=== PATIENT | female | born 1995 | race African-American/Black ===

== ENCOUNTER 2016-08-19 22:02 | Emergency (ER) | payer SELFPAY ==
[2016-08-19 22:08] VITALS: BP 144/83; BMI 50.2
--- NOTE | 2016-08-19 22:21 | DR.GENAD ---
HPI - PCP Primary Care Physician: NFD - Complaint/Symptoms Chief Complaint:: PT C/O BOTTOM RT TOOTHACHE SWELLING NOTED TOO JAW - Nurses notes reviewed Nurses Notes Review: Yes - Source History Provided: Patient - Mode of Arrival Mode of Arrival: Ambulatory - Timing Onset of Chief Complaint: 08/18/16 Came on: Gradually - Duration Duration: Constant - Location Location: right lower tooth - Severity Severity: Moderate - Modifying Factors Worsens:: food - Associated Signs and Symptoms Associated Signs and Symptoms: swelling PMH - PMH Past Medical History: No Past Surgical History: No - Family History History of Family Medical Conditions: No - Social History Does any household member use tobacco: No Alcohol Use: None Do you use any recreational Drugs:: No Lives With: Family Lives Where: Home - infectious screening In the last 2 months have you had wt loss of >10#?: NO Have you had fever, night sweats or hemotysis?: No Have you traveled outside the country in the last 6 months?: No Isolation: Standard ROS - Review of Systems Constitutional: No Symptoms Reported Eyes: No Symptoms Reported ENTM: Mouth Pain Respiratoy: No Symptoms Reported Cardiovascular: No Symptoms Reported Gastrointestinal/Abdominal: No Symptoms Reported Genitourinary: No Symptoms Reported Neurological: No Symptoms Reported Musculoskeletal: No Symptoms Reported Integumentary: No Symptoms Reported Hematologic/Lymphatic: No Symptoms Reported Endocrine: No Symptoms Reported Psychiatric: No Symptoms Reported All Other Systems: Reviewed and Negative PE - Vital Signs Vitals: Temperature 98.6 F Pulse Rate 98 Respiratory Rate 18 Blood Pressure 144/83 O2 Sat by Pulse Oximetry 100 - General Limitations: No Limitations General Appearance: Alert, In No Apparent Distress - Head Head Exam: Normal Inspection - Eyes Eye exam: Normal Appearance, EOMI. negative: Scleral Icterus, Conjunctival Injection - ENT ENT Exam: Other (right lower gum swelling inflammed) External Ear Exam: Normal External Inspection Mouth Exam: Normal Inspection, Other (gum red swelling). negative: Drooling, Trismus, Lip Swelling, Tongue Elevation, Tongue Swelling - Neck Neck Exam: Normal Inspection, Full ROM, Trachea Midline - Chest Chest Inspection: Normal Inspection - Respiratory Respiratory Exam: negative: Accessory Muscle Use, Respiratory Distress - Cardiovascular Cardiovascular Exam: Regular Rate - Extremities Extremities Exam: Normal Inspection, Full ROM - Back Back Exam: Normal Inspection - Neurologic Neurological Exam: Alert, Oriented X3, CN II-XII Intact - Psychiatric Psychiatric Exam: Normal Mood - Skin Skin Exam: Intact, Normal Color - Diagnosis Discharge Problem: Toothache - Discharge Plan Condition: Stable Prescriptions: Azithromycin [Zithromax Z-Danis 5-day] 1 dose PO DAILY #6 tab Tramadol HCl [ULTRAM 50 MG *] 50 mg PO Q8H PRN #21 tab PRN Reason: Pain - Follow ups/Referrals Follow ups/Referrals: NFD,None [Primary Care Provider] - 3 days - Instructions Instructions: Dental Pain
[2016-08-19] MEDS ORDERED: ROCEPHIN VIAL 1 GM IM ONE (22:37)
[2016-08-19] MEDS ORDERED: ULTRAM PO ONE (22:40)
[2016-08-19] MEDS ORDERED: XYLOCAINE 1 % (PLAIN) ONE (22:42)
[2016-08-19] MEDS ORDERED: ROCEPHIN VIAL 1 GM ONE (22:43)
[2016-08-19] MEDS ORDERED: ULTRAM ONE (22:43)
== END 2016-08-19 23:03 | disposition home or self-care (01) ==
LOC: ER 22:13
DX: K08.89 Other specified disorders of teeth and supporting structures (principal)
CPT/HCPCS: 96372; 99282; J0696; J2001

== ENCOUNTER 2016-09-24 10:30 | Emergency (ER) | payer SELFPAY ==
[2016-09-24 10:43] VITALS: BP 129/85; BMI 45.0
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
== END 2016-09-24 12:03 | disposition home or self-care (01) ==
LOC: ER 10:50
DX: S22.088A Other fracture of T11-T12 vertebra, initial encounter for closed fracture (principal); M54.5 Low back pain; V89.2XXA Person injured in unspecified motor-vehicle accident, traffic, initial encounter; Y92.69 Other specified industrial and construction area as the place of occurrence of the external cause
CPT/HCPCS: 99281; 99282

== ENCOUNTER 2016-12-27 10:33 | Emergency (ER) | payer SELFPAY ==
[2016-12-27 10:46] VITALS: BP 138/78; BMI 39.1
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
[2016-12-27 11:42] LABS: BASOPHILS # (AUTO) 0.1 X10^3/uL (0.0-0.1); BASOPHILS % (AUTO) 0.8 % (0.2-1.0); EOSINOPHILS # (AUTO) 0.1 x10^3/uL (0.0-0.2); EOSINOPHILS % (AUTO) 1.4 % (0.9-2.9); HEMATOCRIT 36.2 % (36.0-47.0); HEMOGLOBIN 11.8 g/dL (12.0-16.0); LYMPHOCYTES # (AUTO) 2.2 X10^3/uL (1.3-2.9); LYMPHOCYTES % (AUTO) 29.3 % (21.0-51.0); MEAN CORPUSCULAR HEMOGLOBIN 29.5 pg (27.0-34.0); MEAN CORPUSCULAR HGB CONC 32.7 g/dL (33.0-35.0); MEAN CORPUSCULAR VOLUME 90.4 fL (80.0-100.0); MEAN PLATELET VOLUME 9.1 fL (7.4-11.0); MONOCYTES # (AUTO) 0.5 x10^3/uL (0.3-0.8); MONOCYTES % (AUTO) 6.2 % (0.0-13.0); NEUTROPHILS # (AUTO) 4.6 x10^3/uL (2.2-4.8); NEUTROPHILS % (AUTO) 62.3 % (42.0-75.0); PLATELET COUNT 392 X10^3/uL (150.0-450.0); RED BLOOD COUNT 4.01 X10^6/uL (3.5-5.4); RED CELL DISTRIBUTION WIDTH 14.8 % (11.6-16.5); WHITE BLOOD COUNT 7.3 X10^3/uL (3.6-10.0)
[2016-12-27 11:46] LABS: BILIRUBIN,URINE NEGATIVE (NEGATIVE); BLOOD/HEMOGLOBIN,URINE NEGATIVE (NEGATIVE); GLUCOSE, URINE NEGATIVE (NEGATIVE); KETONES,URINE NEGATIVE (NEGATIVE); LEUKOCYTE ESTERASE ,URINE NEGATIVE (NEGATIVE); NITRITES,URINE NEGATIVE (NEGATIVE); PH,URINE 6.5 (5.0 - 8.0); PROTEIN,URINE NEGATIVE (NEGATIVE); UROBILINOGEN,URINE NORMAL (NORMAL)
--- NOTE | 2016-12-27 11:49 | CT ---
HISTORY: Neck & C-spine pain Study: CT cervical spine without contrast Comparison: None Technique: Multiple axial images of the cervical spine were obtained from the skull base to the thora cic inlet without administration of IV contrast. Sagittal and coronal reformats were performed and r eviewed. Findings: Alignment of the cervical spine is maintained. No evidence for acute fracture, compression deformity , or subluxation can be seen. The central canal remains free of compromise from bony fragments or si gnificant soft tissue encroachment. The posterior elements appear unremarkable. The prevertebral so ft tissues are normal in their appearance. In addition, the surrounding paraspinous soft tissues are unremarkable IMPRESSION: 1. NEGATIVE C-SPINE CT EXAM. Reported By:
[2016-12-27 11:51] LABS: ALANINE AMINOTRANSFERASE 17 Units/L (12-78); ALBUMIN 3.3 g/dL (3.4-5.0); ALKALINE PHOSPHATASE 65 Units/L (46-116); ASPARTATE AMINO TRANSFERASE 13 Units/L (15-37); BLOOD UREA NITROGEN 6 mg/dL (7-18); CALCIUM 9.2 mg/dL (8.5-10.1); CARBON DIOXIDE 27.4 mmol/L (21-32); CHLORIDE 105 mmol/L (98-107); COR CA(FOR HYPOALB) 9.8 mg/dL (8.5-10.1); COR NA(FOR HYPERGLY) 139 mmol/L (136-145); CREATININE 0.72 mg/dL (0.55-1.02); SODIUM 139 mmol/L (136-145); TOTAL PROTEIN 7.6 g/dL (6.4-8.2); eGFR BLACK RACES > 60 (>60); eGFR NON BLACK RACES > 60 (>60)
--- NOTE | 2016-12-27 11:51 | CT ---
HISTORY: Low back pain. Injury. Study: CT lumbar spine without contrast Comparison: None. Technique: Multiple axial images of the lumbar spine were obtained from the thoracolumbar junction t o the sacrum without the administration of IV contrast. Sagittal and coronal reformats were performe d and reviewed. Findings: Alignment of the lumbar spine is maintained. No evidence for acute fracture or subluxation can be id entified. No central canal compromise by bony osteophyte formation or soft tissue components can be identified. No significant facet joint arthropathy can be appreciated. The surrounding paraspinous soft tissues are normal in their noncontrasted appearance. IMPRESSION: Negative CT exam of the lumbar spine for acute lumbar fracture or subluxation. However, there is a compression fracture involving the T11 vertebral body which apparently extends to the posterior elements at this level. This can be correlated with CT imaging of the thoracic spine, as this may be a subacute injury/fracture. Two rather large cystic lesions seen in the pelvis; probably ovarian in etiology. This can followed u p with pelvic sonography for improved assessment/assurance. Reported By:
[2016-12-27 11:52] LABS: SERUM PREGNANCY TEST, QUAL NEGATIVE <10 mIU/mL
[2016-12-27 11:53] LABS: APPEARANCE,URINE CLEAR (CLEAR); COLOR,URINE YELLOW (YELLOW)
[2016-12-27 12:09] LABS: AMORPHOUS SEDIMENT,UR TRACE /HPF (NEGATIVE); BACTERIA,URINE TRACE /HPF (NEGATIVE); RBC,URINE RARE /HPF (NEGATIVE); SQUAMOUS EPITHELIAL CELL,UR MODERATE /HPF (NEGATIVE)
[2016-12-27] MEDS ORDERED: TORADOL 60 MG VIAL IM ONE (12:34)
[2016-12-27] MEDS ORDERED: TORADOL 60 MG VIAL ONE (12:43)
== END 2016-12-27 13:04 | disposition home or self-care (01) ==
LOC: ER 10:48
DX: S22.080A Wedge compression fracture of T11-T12 vertebra, initial encounter for closed fracture (principal); M54.5 Low back pain; V89.2XXA Person injured in unspecified motor-vehicle accident, traffic, initial encounter
CPT/HCPCS: 36415; 72125; 72131; 80053; 81001; 84703; 85025; 96372; 99283; J1885

== ENCOUNTER 2017-02-07 14:20 | Emergency (ER) | payer SELFPAY ==
[2017-02-07 14:30] VITALS: BP 137/88; BMI 37.3
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
== END 2017-02-07 15:36 | disposition home or self-care (01) ==
LOC: ER 14:28
DX: R07.89 Other chest pain (principal)
CPT/HCPCS: 99281

== ENCOUNTER 2017-03-17 16:36 | Emergency (ER) | payer SELFPAY ==
[2017-03-17 16:39] VITALS: BP 131/87; BMI 31.8
[2017-03-17 17:21] LABS: BILIRUBIN,URINE NEGATIVE (NEGATIVE); BLOOD/HEMOGLOBIN,URINE 1+ (NEGATIVE); GLUCOSE, URINE NEGATIVE (NEGATIVE); KETONES,URINE NEGATIVE (NEGATIVE); LEUKOCYTE ESTERASE ,URINE 1+ (NEGATIVE); NITRITES,URINE NEGATIVE (NEGATIVE); PROTEIN,URINE 1+ (NEGATIVE); UROBILINOGEN,URINE 1+ (NORMAL)
[2017-03-17 17:25] LABS: SERUM PREGNANCY TEST, QUAL NEGATIVE <10 mIU/mL
[2017-03-17 17:25] LABS: APPEARANCE,URINE HAZY (CLEAR); BACTERIA,URINE TRACE /HPF (NEGATIVE); COLOR,URINE YELLOW (YELLOW); RBC,URINE 0-2 /HPF (NEGATIVE); SQUAMOUS EPITHELIAL CELL,UR FEW /HPF (NEGATIVE)
[2017-03-17 18:58] LABS: CHLAMYDIA TRACH URINE NOT DETECTED (NOT DETECT)
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
== END 2017-03-17 19:29 | disposition home or self-care (01) ==
LOC: ER 16:44
DX: Z20.2 Contact with and (suspected) exposure to infections with a predominantly sexual mode of transmission (principal); N34.2 Other urethritis
CPT/HCPCS: 36415; 81001; 84703; 87491; 87591; 99282

== ENCOUNTER 2017-03-30 16:09 | Emergency (ER) | payer SELFPAY ==
[2017-03-30 16:19] VITALS: BP 133/95; BMI 39.5
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
[2017-03-30] MEDS ORDERED: AMOXIL CAP 500 MG PO ONE ×3 (17:45→17:50)
[2017-03-30] MEDS ORDERED: MOTRIN TAB 800 MG PO ONE ×2 (17:46→17:50)
== END 2017-03-30 17:57 | disposition home or self-care (01) ==
LOC: ER 16:16
DX: H66.92 Otitis media, unspecified, left ear (principal)
CPT/HCPCS: 99282

== ENCOUNTER 2017-08-15 09:25 | Emergency (ER) | payer SELFPAY ==
[2017-08-15 09:35] VITALS: BP 135/82; BMI 40.0
--- NOTE | 2017-08-15 10:04 | DR.GENAD ---
HPI - PCP Primary Care Physician: THOM - HPI Comment HPI Comment: HISTORY BELOW. - Complaint/Symptoms Chief Complaint Doctors Comments: NO PERIOD TIMES 2M. HAVING LOWER ABDOMINAL PAIN AND URINARY FREQUENCY. NO DYSURIA OR FEVER. NO VAGINAL BLEEDING. Chief Complaint:: Pt states that she has had interimittent lower abomen for about 2 weeks. Denies dysuria or discharge. Pt states she hasn't had a period in about 2 months and usually when she's late she has a uti. Pt also states that she has had intermittent nausea and vomiting - Nurses notes reviewed Nurses Notes Review: Yes - Source History Provided: Patient - Mode of Arrival Mode of Arrival: Ambulatory - Timing Onset of Chief Complaint: 08/15/17 Came on: Suddenly - Duration Duration: Constant Duration: Weeks - Severity Severity: Moderate PMH - PMH Past Medical History: No Past Surgical History: No Surgical History: No History - Family History History of Family Medical Conditions: Yes Family Medical History: Diabetes Mellitus, CA, Coronary Artery Disease, Hypertension - Social History Does patient currently use any type of tobacco product: No Have you used tobacco products in the last 12 months: No Type of Tobacco Use: None Does any household member use tobacco: No Alcohol Use: None Do you use any recreational Drugs:: No Lives With: Friend Lives Where: Home - infectious screening In the last 2 months have you had wt loss of >10#?: NO Have you had fever, night sweats or hemotysis?: No Have you traveled outside the country in the last 6 months?: No Isolation: Standard ROS - Review of Systems Constitutional: Weakness, Fatigue Eyes: No Symptoms Reported ENTM: No Symptoms Reported Respiratoy: No Symptoms Reported Cardiovascular: No Symptoms Reported Gastrointestinal/Abdominal: Abdominal Pain (LOWER ABDOMINAL PAIN) Genitourinary: Frequency Neurological: No Symptoms Reported Musculoskeletal: No Symptoms Reported Integumentary: No Symptoms Reported Hematologic/Lymphatic: No Symptoms Reported Endocrine: No Symptoms Reported All Other Systems: Reviewed and Negative PE - Vital Signs Vitals: Temperature 97.5 F Pulse Rate 115 Respiratory Rate 20 Blood Pressure 135/82 O2 Sat by Pulse Oximetry 99 - General Limitations: No Limitations General Appearance: Alert - Head Head Exam: Normal Inspection - Eyes Eye exam: Normal Appearance - ENT ENT Exam: Normal External Ear Exam External Ear Exam: Normal External Inspection TM/Canal Exam: Bilateral Normal Nose Exam: Normal Nose Exam Mouth Exam: Normal Inspection Throat Exam: Normal Inspection - Neck Neck Exam: Trachea Midline - Chest Chest Inspection: Symmetric Chest Wall Rise - Respiratory Respiratory Exam: Normal Lung Sounds Bilat Respiratory Exam: Bilateral Clear to Auscultation - Cardiovascular Cardiovascular Exam: Regular Rate, Normal Rhythm, Normal Heart Sounds - Abdominal Exam Abdominal Exam: Normal Bowel Sounds, Soft. negative: Tenderness - Extremities Extremities Exam: Normal Inspection - Back Back Exam: Normal Inspection - Neurologic Neurological Exam: Alert, Oriented X3 - Psychiatric Psychiatric Exam: Normal Affect, Normal Mood - Skin Skin Exam: Normal Color MDM - Differential Diagnosis Differential Diagnosis: AMENORRHEA, ABDOMINAL PAIN, UTI. Course - Treatment Treatment: SEE ORDERS. - Education/Counseling Education/Counseling: Patient, Education Educated On: Diagnosis, Needs for Follow Up ROR - Labs Reviewed Laboratory Results Reviewed?: Yes Laboratory: HCG, Qual Positive >10 mIU/mL 08/15/17 10:11 HCG, Quant 25651 mIU/mL (0-6) H 08/15/17 10:11 Specimen Type Random urine 08/15/17 09:47 Urine Color Yellow (YELLOW) 08/15/17 09:47 Urine Appearance Clear (CLEAR) 08/15/17 09:47 Urine pH 5.0 (5.0 - 8.0) 08/15/17 09:47 Ur Specific [place] 1.025 (1.000-1.030) 08/15/17 09:47 Urine Protein 2+ (NEGATIVE) 08/15/17 09:47 Urine Glucose (UA) 3+ (NEGATIVE) 08/15/17 09:47 Urine Ketones 1+ (NEGATIVE) 08/15/17 09:47 Urine Occult Blood 1+ (NEGATIVE) 08/15/17 09:47 Urine Nitrite Negative (NEGATIVE) 08/15/17 09:47 Urine Bilirubin Negative (NEGATIVE) 08/15/17 09:47 Urine Urobilinogen Normal (NORMAL) 08/15/17 09:47 Ur Leukocyte Esterase 1+ (NEGATIVE) 08/15/17 09:47 Urine RBC 0-2 /HPF (NONE SEEN) 08/15/17 09:47 Urine WBC 3-5 /HPF (NONE SEEN) 08/15/17 09:47 Ur Squamous Epith Cells Many /HPF (NEGATIVE) 08/15/17 09:47 Urine Bacteria Trace /HPF (NEGATIVE) 08/15/17 09:47 Urine Mucus Moderate /HPF (NEGATIVE) 08/15/17 09:47 Ur Culture Indicated? No/not indicated 08/15/17 09:47 - XRAY XRAY Interpreted by: Radiologist XRAY Findings: REPORT DISCUSS WITH PATIENT. - Diagnosis Discharge Problem: Abdominal pain affecting , Abdominal pain during intrauterine - Discharge Plan Disposition: 01 HOME, SELF-CARE Condition: Stable - Follow ups/Referrals Follow ups/Referrals: [facility],None [Primary Care Provider] - 3 days ABIMAEL DIETRICH [STAFF PHYSICIAN] - 3 days - Instructions Instructions: Abdominal Pain During , [id number], Pelvic Rest Additional Instructions: RETURN TO ED IF WORSE.
[2017-08-15 10:10] LABS: BILIRUBIN,URINE NEGATIVE (NEGATIVE); BLOOD/HEMOGLOBIN,URINE 1+ (NEGATIVE); GLUCOSE, URINE 3+ (NEGATIVE); KETONES,URINE 1+ (NEGATIVE); LEUKOCYTE ESTERASE ,URINE 1+ (NEGATIVE); NITRITES,URINE NEGATIVE (NEGATIVE); PROTEIN,URINE 2+ (NEGATIVE); UROBILINOGEN,URINE NORMAL (NORMAL)
[2017-08-15 10:17] LABS: APPEARANCE,URINE CLEAR (CLEAR); COLOR,URINE YELLOW (YELLOW)
[2017-08-15 10:18] LABS: BACTERIA,URINE TRACE /HPF (NEGATIVE); MUCUS,URINE MODERATE /HPF (NEGATIVE); RBC,URINE 0-2 /HPF (NONE SEEN); SQUAMOUS EPITHELIAL CELL,UR MANY /HPF (NEGATIVE)
[2017-08-15 10:54] LABS: SERUM PREGNANCY TEST, QUAL POSITIVE >10 mIU/mL
--- NOTE | 2017-08-15 12:15 | US ---
Exam: Obstetrical ultrasound (less than 14 weeks) History: 21-year-old female with intermittent lower abdominal pain for 2 weeks Comparison: None Findings: Single viable intrauterine gestation is identified which based on crown rump length measurement would correspond to a 6 week 2 day gestation. Cardiac activity is documented at 189 bpms. Uterus measures 6.8 x 4.5 x 6.9 cm in size. Neither ovary is clearly seen on this exam because of lar ge amount of overlying bowel gas. Impression: Single viable intrauterine measuring 6 weeks 2 days estimated gestational age. [place] 04/08/19 19 Reported By:
== END 2017-08-15 12:25 | disposition home or self-care (01) ==
LOC: ER 09:36
DX: R10.84 Generalized abdominal pain (principal); Z3A.01 Less than 8 weeks gestation of pregnancy
CPT/HCPCS: 36415; 76801; 81001; 84702; 84703; 99283; 99284